=== PATIENT | male | born 1965 | race Caucasian/White ===

== ENCOUNTER 2017-06-17 12:01 | Emergency (ER) | payer SELFPAY ==
[2017-06-17] MEDS ORDERED: ONDANSETRON HCL INJ/PF 4 MG/2 ML SDV IV ONE (12:32)
[2017-06-17] MEDS ORDERED: FENTANYL CITRATE INJ/PF 100 MCG/2 ML AMPUL IV ONE ×2 (12:33→13:30)
--- NOTE | 2017-06-17 12:37 | ER Document Report ---
ED Medical Screen (RME) - General Chief Complaint: Shoulder Injury Stated Complaint: SHOULDER INJURY Time Seen by Provider: 06/17/17 12:32 Mode of Arrival: Ambulatory Information source: Patient TRAVEL OUTSIDE OF THE [place] IN LAST 30 DAYS: No - HPI Onset: Just prior to arrival Onset/Duration: Sudden Context: Patient was reaching to tag another player during a ball game, had sudden onset of pain in shoulder and felt a "pop". Severity: Moderate Associated Symptoms: None Exacerbated by: Movement Relieved by: Remaining still Similar symptoms previously: Yes - ONCE, DISLOCATION REDUCED, NO FOLLOW-UP Recently seen / treated by doctor: No - Related Data Allergies/Adverse Reactions: Penicillins Allergy (Verified 06/17/17 12:15) Past Medical History - General Information source: Patient - Social History Frequency of alcohol use: Occasional Drug Abuse: None Lives with: Family - Medical History Medical History: Negative Renal/ Medical History: Denies: Hx Peritoneal Dialysis Past Surgical History: Reports: Hx Orthopedic Surgery - knee and elbow Review of Systems - Review of Systems Constitutional: No symptoms reported EENT: No symptoms reported Cardiovascular: No symptoms reported Respiratory: No symptoms reported Gastrointestinal: No symptoms reported Musculoskeletal: See HPI Physical Exam - Vital signs Vitals: Temp Pulse Resp BP Pulse Ox 97.9 F 87 20 127/89 H 96 06/17/17 12:13 06/17/17 12:13 06/17/17 12:13 06/17/17 12:13 06/17/17 12:13 Interpretation: Normal - General General appearance: Alert, Anxious In distress: None - HEENT Head: Normocephalic Eyes: Normal - Respiratory Respiratory status: No respiratory distress - Cardiovascular Rhythm: Regular - Extremities General upper extremity: No: Normal inspection - L. SHOULDER (SEE BELOW) Shoulder: Dislocation - NORMAL ACROMIODELTOID CONTOUR SQUARED OFF. - Skin Skin Temperature: Warm Skin Moisture: Dry Skin Color: Normal Skin Turgor: Elastic Course - Vital Signs Vital signs: Temp Pulse Resp BP Pulse Ox 98.0 F 88 20 153/103 H 85 L 06/17/17 14:56 06/17/17 13:55 06/17/17 15:14 06/17/17 15:22 06/17/17 15:14 Doctor's Discharge - Discharge Clinical Impression: Left shoulder reduction, Dislocation of left shoulder joint Condition: Good Disposition: HOME, SELF-CARE Instructions: Oral Narcotic Medication ([facility]), Post Sedation Instructions ([facility]) , Shoulder Dislocation ([facility]), Sling as Treatment ([facility]) Additional Instructions: Your shoulder was successfully reduced today please continue to wear the sling until you follow-up with orthopedic physician. Return to the ER for any concerns. Take medication given to you in ER as prescribed. Use Tylenol Motrin for pain control as well Prescriptions: Hydrocodone/Acetaminophen [[place] 5-325 mg Tablet] 1 tab PO Q6 #10 tablet Referrals: DASIA GARCIA DO [ACTIVE STAFF] - Follow up as needed (Call office on Monday for follow-up appointment)
--- NOTE | 2017-06-17 13:25 | RADIOLOGY REPORT (SQ) ---
EXAM DESCRIPTION: SHOULDER LEFT 2 OR MORE VIEWS COMPLETED DATE/TIME: 06/17/2017 1:17 pm REASON FOR STUDY: TRAUMA/PAIN COMPARISON: None. NUMBER OF VIEWS: Three views. TECHNIQUE: Internal rotation, external rotation, and Y view images acquired of the left shoulder. LIMITATIONS: None. FINDINGS: MINERALIZATION: Normal. BONES: No fracture or bony abnormality seen. JOINTS: Anterior dislocation of left shoulder VISUALIZED LUNGS AND RIBS: No pneumothorax. No rib fracture. SOFT TISSUES: No radiopaque foreign body. OTHER: No other significant finding. IMPRESSION: Anterior dislocation left shoulder. . TECHNICAL DOCUMENTATION: JOB ID: [id number] [id number] 2010 [employer]- All Rights Reserved
[2017-06-17] MEDS ORDERED: NORMAL SALINE 1000 ML 1,000 ML IV ONE ×2 (13:28→13:31)
[2017-06-17] MEDS ORDERED: KETAMINE HCL INJ 500 MG/10 ML VIAL IV ONE (13:30)
[2017-06-17] MEDS ORDERED: MIDAZOLAM 2 MG/2 ML INJ IV ONE (13:31)
--- NOTE | 2017-06-17 14:15 | RADIOLOGY REPORT (SQ) ---
EXAM DESCRIPTION: SHOULDER LEFT 1 VIEW COMPLETED DATE/TIME: 06/17/2017 2:07 pm REASON FOR STUDY: s/p reduction COMPARISON: 06/17/2015 NUMBER OF VIEWS: One view. TECHNIQUE: Single AP view acquired of the left shoulder. LIMITATIONS: None. FINDINGS: MINERALIZATION: Normal. BONES: Possible small Hill-Sachs type fracture. Bones otherwise intact. JOINTS: Interval relocation humeral head. VISUALIZED LUNGS AND RIBS: No pneumothorax. No rib fracture. SOFT TISSUES: No radiopaque foreign body. OTHER: No other significant finding. IMPRESSION: INTERVAL RELOCATION OF THE HUMERAL HEAD WITH POSSIBLE SMALL HILL-SACHS TYPE FRACTURE. TECHNICAL DOCUMENTATION: JOB ID: [id number] [employer]- All Rights Reserved
--- NOTE | 2017-06-17 15:00 | ER Document Report ---
ED General - General Chief Complaint: Shoulder Injury Stated Complaint: SHOULDER INJURY Time Seen by Provider: 06/17/17 12:32 Mode of Arrival: Ambulatory TRAVEL OUTSIDE OF THE [place] IN LAST 30 DAYS: No - HPI Patient complains to provider of: Left shoulder injury Notes: Patient coming in after playing baseball states he stuck his left shoulder out and me felt pain in a pop. Patient states he has dislocated shoulder before in March. Patient states never followed up with orthopedic doctor. Patient upon my evaluation sitting comfortably holding her left arm. Denies any past medical history last intake was at 8:30 in the morning. Denies any other trauma. Patient denies fevers chills nausea vomiting diarrhea - Related Data Allergies/Adverse Reactions: Penicillins Allergy (Verified 06/17/17 12:15) Past Medical History - General Information source: Patient - Social History Smoking Status: Never Smoker Frequency of alcohol use: Occasional Drug Abuse: None Lives with: Family Family History: Reviewed & Not Pertinent Patient has suicidal ideation: No Patient has homicidal ideation: No - Medical History Medical History: Negative Renal/ Medical History: Denies: Hx Peritoneal Dialysis Past Surgical History: Reports: Hx Orthopedic Surgery - knee and elbow Review of Systems - Review of Systems Constitutional: No symptoms reported EENT: No symptoms reported Cardiovascular: No symptoms reported Respiratory: No symptoms reported Gastrointestinal: No symptoms reported Genitourinary: No symptoms reported Male Genitourinary: No symptoms reported Musculoskeletal: Other - Left shoulder pain Skin: No symptoms reported Hematologic/Lymphatic: No symptoms reported Neurological/Psychological: No symptoms reported -: Yes All other systems reviewed and negative Physical Exam - Vital signs Vitals: Temp Pulse Resp BP Pulse Ox 97.9 F 87 20 127/89 H 96 06/17/17 12:13 06/17/17 12:13 06/17/17 12:13 06/17/17 12:13 06/17/17 12:13 Interpretation: Normal - General General appearance: Appears well, Alert - HEENT Head: Normocephalic, Atraumatic Eyes: Normal Pupils: PERRL - Respiratory Respiratory status: No respiratory distress Chest status: Nontender Breath sounds: Normal Chest palpation: Normal - Cardiovascular Rhythm: Regular Heart sounds: Normal auscultation Murmur: No - Abdominal Inspection: Normal Distension: No distension Bowel sounds: Normal Tenderness: Nontender Organomegaly: No organomegaly - Back Back: Normal, Nontender - Extremities General upper extremity: Normal color, Other - Patient has obvious deformity with left shoulder that is consistent with a left shoulder dislocation. Pulses and sensation are intact. Patient has equal neon molder strength. Right shoulder unaffected. No: Normal inspection, Nontender General lower extremity: Normal inspection, Nontender, Normal color, Normal ROM , Normal temperature, Normal weight bearing. No: Miguel's sign - Neurological Neuro grossly intact: Yes Cognition: Normal Orientation: AAOx4 [place] Coma Scale Eye Opening: Spontaneous Audrey Coma Scale Verbal: Oriented [place] Coma Scale Motor: Obeys Commands Audrey Coma Scale Total: 15 Speech: Normal Motor strength normal: LUE, RUE, LLE, RLE Sensory: Normal - Psychological Associated symptoms: Normal affect, Normal mood - Skin Skin Temperature: Warm Skin Moisture: Dry Skin Color: Normal Course - Re-evaluation Re-evalutation: 06/17/17 15:00 Patient underwent conscious sedation with Versed and ketamine successful reduction of the shoulder x-ray states possible Hill-Sachs although in reducing the shoulder minimal effort was placed in a only elevated the patient's arm with no traction was successful reduction. I highly doubt a Hill-Sachs was caused by reduction. In the way patient was placed in the immobilizer and encouraged patient follow-up with orthopedics. Patient was given a sixpack on [place] to be discharged home with. - Vital Signs Vital signs: Temp Pulse Resp BP Pulse Ox 97.9 F 88 22 H 162/92 H 99 06/17/17 12:13 06/17/17 13:55 06/17/17 14:41 06/17/17 14:41 06/17/17 14:41 Procedures - Conscious Sedation Conscious sedation Time started: 13:51 Time completed: 13:54 Consent obtained: Yes Indication: Left shoulder reduction Last meal: 830 Prior complications: Procedural sedation Normal healthy pt.: P1. - ASA Classification Airway Evaluation: Normal anatomy Mallampati Classification: Class 1 Used during procedure: Suction available, IV access obtained, Pulse ox on pt., desk monitor on pt. Medications administered: Versed - This is, Ketamine Reversal agents: None I personally performed/intraservice time: Sedation, 30 min or less Complications: No - Immobilization Left Shoulder Pre-Proc Neuro Vasc Exam: Normal Immobilizer type: Shoulder immobilizer Performed by: Provider Post-Proc Neuro Vasc Exam: Normal Alignment checked and good: Yes - As - Joint Reduction/Fracture Care Left Shoulder Time completed: 15:31 Consent obtained: Yes Conscious sedation: Yes Pre-procedure NV exam: Yes Fracture: Closed Manipulation comment: Gentle elevation of the patient's arm no traction Post-procedure NV exam: Yes Post-reduction x-ray: Joint reduced - Possible Hill-Sachs Reduction attempts: 1 Complications: No Discharge - Discharge Clinical Impression: Left shoulder reduction Dislocation of left shoulder joint Qualifiers: Encounter type: initial encounter Qualified Code(s): S43.005A - Unspecified dislocation of left shoulder joint, initial encounter Condition: Good Disposition: HOME, SELF-CARE Instructions: Oral Narcotic Medication ([facility]), Post Sedation Instructions ([facility]) , Shoulder Dislocation ([facility]), Sling as Treatment ([facility]) Additional Instructions: Your shoulder was successfully reduced today please continue to wear the sling until you follow-up with orthopedic physician. Return to the ER for any concerns. Take medication given to you in ER as prescribed. Use Tylenol Motrin for pain control as well Prescriptions: Hydrocodone/Acetaminophen [[place] 5-325 mg Tablet] 1 tab PO Q6 #10 tablet Referrals: DASIA GARCIA DO [ACTIVE STAFF] - Follow up as needed (Call office on Monday for follow-up appointment)
[2017-06-17] MEDS ORDERED: HYDROCODONE/ACETAMINOPHEN 5-325 MG (6 TAB/ER DISP) PO PRN (15:02)
[2017-06-17 15:35] VITALS: BP 153/103
== END 2017-06-17 15:34 | disposition home or self-care (01) ==
LOC: ER 12:01
PROC: 0RSKXZZ Reposition Left Shoulder Joint, External Approach (ICD-10-PCS; principal; 2017-06-17)
DX: S43.005A Unspecified dislocation of left shoulder joint, initial encounter (principal); M25.512 Pain in left shoulder; W22.8XXA Striking against or struck by other objects, initial encounter; Y93.64 Activity, baseball
CPT/HCPCS: 99283; 96361; 99152; 96374; 73020; 73030; 23650; J2250; J3010; J3490; J2405; J7030